=== PATIENT | male | born 1985 | race Caucasian/White ===

== ENCOUNTER 2021-07-01 23:00 | Emergency (ER) | payer MEDICAID, SELFPAY ==
--- NOTE | ~2021-07-01 | CT_ITS ---
EXAMINATION: CT brain wo con INDICATION: Transient alteration of awareness COMPARISON: 03/31/2012 TECHNIQUE: Standard unenhanced head CT. The dose-length product (DLP) was 681.00 mGy-cm. The mA was a djusted according to patient size. Iterative reconstruction technique was employed. FINDINGS: There is no intracranial hemorrhage, acute infarction, or abnormal mass lesion. The ventric les are normal. There is no abnormal mass effect or midline shift. The howe-white matter differentiat ion is normal. The basal cisterns are patent. The orbits are normal. There is mild mucosal thickening of the paranasal sinuses. Surgical changes are noted in the inferior right orbit. IMPRESSION: 1. No acute intracranial abnormality. Reviewed, dictated and finalized at location A.
[2021-07-01 23:16] VITALS: BP 138/100; PULSE 100; RESP 20; TEMP 37; O2SAT 100
--- NOTE | 2021-07-01 23:26 | ED.GENADULT ---
HPI - General Adult General Chief complaint: Psychiatric Symptoms Stated complaint: PSYCH Time Seen by Provider: 07/01/21 23:02 Source: EMS Mode of arrival: EMS Limitations: altered mental status History of Present Illness HPI narrative: 35-year-old male presenting to the emergency department for a psych evaluation. Patient arrives to the emergency department by EMS. Patient was picked up by the police and has been nonverbal and not responding. Patient does make some acknowledgments. I did tell the patient that I could tell he was trying not to make eye contact with me and the patient showed me the middle finger. Patient reportedly has a past history of PTSD and alcohol abuse. After the patient's father arrived the patient did become verbal. Patient is alert and appropriate at this time. Father states that the patient has had altered mental status over the last few days. Patient states he now feels improved. Patient denies any suicidal or homicidal ideation. Patient states he has had previous psychiatric visits but denies any psychiatric hospitalization. Patient states he does have a counselor but the counselor is unable to get him in until Wednesday. Related Data Home Medications Medication Instructions Recorded Confirmed No Home Medications 03/11/20 03/11/20 Allergies Allergy/AdvReac Type Severity Reaction Status Date / Time pantoprazole Allergy Intermediate Itching Verified 03/11/20 11:07 lorazepam AdvReac Severe AMNESIA, Verified 03/11/20 11:07 DECREASED LOC FOR DAYS Review of Systems Review of Systems: ROS unobtainable: Yes unobtainable due to mental status PMFSH Social History Social History (Reviewed 03/11/20 @ 11:07 by Josefina Epps, [facility]) Smoking status: Former smoker Alcohol intake: current Substance use type: does not use Exam Narrative: APPEARANCE: Well appearing, no pain, no distress, well-nourished. HEAD: normocephalic, atraumatic. EYES: PERRLA/EOMI, conjunctivae clear. THROAT: Pharynx clear, no exudate. NECK: Supple. No adenopathy, no masses. RESPIRATORY: Airway patent, respirations nonlabored. Clear to auscultation bilaterally, no rales, rhonchi, wheezing. CARDIOVASCULAR: Regular rate and rhythm without murmurs rubs or gallops. ABDOMINAL: Soft, nontender, nondistended, normal bowel sounds MUSCULOSKELETAL: Moves all extremities. Strength/ROM intact, No edema, No calf tenderness. NEURO: Alert. Cranial nerves II through XII intact. Good gait. Good coordination SKIN: Warm, dry. Normal Color PSYCHIATRIC: Patient was initially altered and displaying unusual behavior where he was praying and nonverbal. After Haldol and the patient's father's arrival to the ED patient was alert oriented and appropriate. Course Course Emergency Course: After treatment with Haldol patient became alert and oriented and more appropriate. Father states that the patient does have a significant history of PTSD. Patient does have a counselor that he follows up with and is scheduled to see them on Wednesday. Patient was evaluated by the crisis counselor and was deemed safe for discharge to home. Patient denies any homicidal or suicidal ideation. Patient and father were comfortable to plan for discharge and close follow-up. Reevaluation(s) Reevaluation #1: Patient is medically cleared to be evaluated by the crisis counselor. Patient is also medically cleared for inpatient psychiatric placement as needed. Vital Signs Vital signs: Vital Signs Temperature 98.6 F 07/01/21 23:16 Pulse Rate 100 07/01/21 23:16 Respiratory Rate 20 07/01/21 23:16 Blood Pressure 138/100 H 07/01/21 23:16 Pulse Oximetry 100 07/01/21 23:16 Temperature 98.6 F 07/01/21 23:16 Pulse Rate 72 07/02/21 07:06 Respiratory Rate 16 07/02/21 07:06 Blood Pressure 120/72 07/02/21 07:06 Pulse Oximetry 100 07/02/21 07:06 Medical Decision Making Vital Signs Vital Signs: Vital Signs Temperature 98.6
[2021-07-01] MEDS: HALOPERIDOL LACTATE 5 MG/ML VIAL IM (23:32)
[2021-07-01] MEDS: SODIUM CHLORIDE 0.9% IV 1,000 ML 999 ML IV CONT (23:35)
[2021-07-01 23:50] LABS: Basophils Absolute Auto 0.1 K/mm3 (0.0-0.1); Basophils Percent Auto 0.7 % (0.2-1.2); Eosinophils Absolute Auto 0.1 K/mm3 (0-0.3); Eosinophils Percent Auto 0.9 % (0-4.4); Hematocrit 46.8 % (42.0-52.0); Hemoglobin 15.9 g/dL (14.0-18.0); Immature Granulocyte Absolute 0.01 K/mm3 (0.00-0.031); Immature Granulocyte Percent A 0.1 % (0-0.5); Lymphocytes Absolute Auto 2.97 K/mm3 (0.9-3.2); Lymphocytes Percent Auto 33.3 % (18.3-44.2); Mean Corpuscular Hemoglobin 32.9 pg (26-34); Mean Corpuscular Volume 96.9 fl (80-100); Mean Platelet Volume 10.1 fl (7.4-10.4); Monocytes Percent Auto 11.2 % (2.6-8.5); Neutrophils Absolute Auto 4.8 K/mm3 (1.3-6.7); Neutrophils Percent Auto 53.8 % (45.5-73.1); Platelet Count Result 322 k/mm3 (150-375); Red Blood Count 4.83 M/mm3 (4.6-6.20); Red Cell Distribution Width 11.6 % (11.5-14.5); White Blood Count 8.9 K/mm3 (4.5-10.0)
--- NOTE | 2021-07-02 | ECG_ITS ---
Measurements Intervals [place] Rate: 83 P: 69 GA: 155 QRS: 83 QRSD: 88 T: 52 QT: 385 QTc: 453 Interpretive Statements SINUS RHYTHM DELAYED PRECORDIAL R/S TRANSITION BORDERLINE T WAVE ABNORMALITY- ANTERIOR LEADS BORDERLINE ECG Electronically Signed On 07-02-2021 6:47:11 CDT by Shekhar Stout D.O.
[2021-07-02 00:03] LABS: Alanine Aminotransferase 49 U/L (6-50); Albumin Level 4.9 g/dL (3.5-5.1); Alkaline Phosphatase 62 U/L (38-126); Anion Gap 9 mmol/L (8-16); Aspartate Amino Transferase 70 U/L (17-59); Blood Urea Nitrogen 22 mg/dL (9-20); Calcium 9.6 mg/dL (8.4-10.2); Carbon Dioxide 27 mmol/L (22-30); Chloride 106 mmol/L (98-107); Estimated Glomerular Filt Rate > 60; Glucose 131 mg/dL (65-110); Potassium 3.7 mmol/L (3.4-5.0); Sodium 142 mmol/L (137-145)
[2021-07-02 00:04] LABS: Acetaminophen < 10 ug/mL (10-30); Ethanol < 10 mg/dL (<10); Salicylate < 1.0 mg/dL (2-20)
[2021-07-02 00:13] LABS: Magnesium 2.3 mg/dL (1.6-2.3)
--- NOTE | 2021-07-02 00:17 | PC.NURSE ---
Patient sitting up and talking only when Dad and EDP Wu in room.
--- NOTE | 2021-07-02 00:22 | PC.NURSE ---
Patient in bed eating a and talking to DAD.
--- NOTE | 2021-07-02 00:44 | PC.NURSE ---
Patient in room talking to father. Patient refused to void and asked for more water. Patient given more water and stated he will try in a few min. EKG done at this time.
[2021-07-02 01:34] LABS: Appearance Urine Clear (Clear); Bilirubin Urine Negative (Negative); Color Urine Yellow (Yellow); Glucose Urine UA Negative (Negative); Ketones Urine Negative (Negative); Leukocyte Esterase Ur Negative LEU/UL (Negative); Nitrate Urine Negative (Negative); Protein Urine Negative (Negative); Specific Grav Ur 1.025 (1.001-1.035); Urobilinogen Urine 0.2 mg/dL (<2.0); pH Urine 5.5 (5.0-9.0)
[2021-07-02 01:35] LABS: Add Urine Microscopic? YES; Blood Urine Trace (Negative)
[2021-07-02 01:38] LABS: Mucus Urine Rare /lpf; RBC Urine 0-2 /hpf (0-2); WBC Urine 0-3 /hpf
[2021-07-02 01:48] LABS: Amphetamine Screen Urine Negative (Negative); Barbiturate Screen Urine Negative (Negative); Benzodiazepines Screen Urine Negative (Negative); Cannabinoid Screen Urine Negative (Negative); Cocaine Screen Urine Negative (Negative); Methadone Screen Urine Negative (Negative); Opiate Screen Urine Negative (Negative); Phencyclidine Screen Urine Negative (Negative)
[2021-07-02] MEDS: SODIUM CHLORIDE 0.9% IV 1,000 ML 999 ML IV CONT (02:01)
--- NOTE | 2021-07-02 04:18 | PC.NURSE ---
Crisis just left patient room after talk with him. Patient is sitting on the side of the bed.
[2021-07-02 07:06] VITALS: BP 120/72; PULSE 72; RESP 16; O2SAT 100
== END 2021-07-02 07:08 | disposition home or self-care (01) ==
PROVIDERS: Emergency Provider Emergency Medicine; PCP Family Medicine
DX: R46.89 Other symptoms and signs involving appearance and behavior (principal); Z87.891 Personal history of nicotine dependence; F43.10 Post-traumatic stress disorder, unspecified
CPT/HCPCS: 36415; 70450; 80053; 80307; 81001; 83735; 84443; 85025; 93005; 96360; 96361; 96372; 99284; J1630; J7030

== ENCOUNTER 2021-10-07 16:06 | Emergency (ER) | payer MEDICAID, SELFPAY ==
--- NOTE | ~2021-10-07 | CT_ITS ---
EXAMINATION: CT brain wo con DATE: 10/07/2021 18:43 INDICATION: Headache. TECHNIQUE: Computed tomography (CT) of the head was performed without intravenous contrast. The mA wa s adjusted according to patient size. Iterative reconstruction technique was employed. The dose-lengt h product was 605.33 mGy-cm. COMPARISON: Head CT 07/01/2021 FINDINGS: There is no intracranial hemorrhage, acute infarction, or abnormal intracranial mass lesion . The ventricles are normal in size. There is mild mucosal thickening in the ethmoid sinuses. The mas toid air cells are normal. The orbits are normal. IMPRESSION: 1. Normal brain. Reviewed, dictated and finalized at location A. IMPRESSION: 1. Normal brain.
--- NOTE | ~2021-10-07 | CT_ITS ---
EXAMINATION: CT cervical spine wo con DATE: 10/07/2021 18:44 INDICATION: Head injury. TECHNIQUE: Computed tomography (CT) of the cervical spine was performed without intravenous contrast. Automated exposure control and iterative reconstruction technique were employed. The dose-length pro duct was 385.59 mGy-cm. COMPARISON: CT cervical spine 01/26/2010 FINDINGS: There is 12 degrees levoscoliosis of cervical spine. Vertebral body heights and interverteb ral disc heights are normal. At C7-T1, there is mild bilateral facet joint osteoarthritis. No neural foraminal stenosis. At C3-C4, there is mild central canal stenosis. IMPRESSION: 1. No fracture. 2. Mild cervical spondylosis. 3. Cervical levoscoliosis. Reviewed, dictated and finalized at location A.
--- NOTE | ~2021-10-07 | XR_ITS ---
EXAMINATION: XR shoulder RT min 2V DATE: 10/07/2021 18:40 INDICATION: Right shoulder pain. TECHNIQUE: 5 views of right shoulder were obtained. COMPARISON: None. FINDINGS: Bone alignment is normal. No fracture. Joint spaces are well maintained. IMPRESSION: 1. Normal right shoulder. Reviewed, dictated and finalized at location A. IMPRESSION: 1. Normal right shoulder.
[2021-10-07 16:29] VITALS: BP 119/77; PULSE 115; RESP 20; TEMP 37.3; O2SAT 98
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
[2021-10-07] MEDS: KETOROLAC (*BKC) 60 MG/2 ML VIAL IM (19:11)
[2021-10-07 19:52] VITALS: BP 124/86; PULSE 100; RESP 16; TEMP 37.5; O2SAT 97
== END 2021-10-07 19:52 | disposition home or self-care (01) ==
PROVIDERS: Emergency Provider General Practice; PCP Family Medicine
DX: S16.1XXA Strain of muscle, fascia and tendon at neck level, initial encounter (principal); R51.9 Headache, unspecified; F17.200 Nicotine dependence, unspecified, uncomplicated; M47.812 Spondylosis without myelopathy or radiculopathy, cervical region; Y04.0XXA Assault by unarmed brawl or fight, initial encounter
CPT/HCPCS: 70450; 72125; 73030; 96372; 99284; J1885

== ENCOUNTER 2023-06-12 07:21 | Emergency (ER) | payer OTHER, SELFPAY ==
--- NOTE | ~2023-06-12 | CT_ITS ---
EXAMINATION: CT abdomen pelvis w con DATE: 06/12/2023 08:35 INDICATION: Abdominal cramping. Lower GI bleed. TECHNIQUE: Computed tomography (CT) of the abdomen and pelvis was performed with 100 cc Omnipaque 350 intravenous contrast. The dose-length product was 219.68 mGy-cm. Automated exposure control and iter ative reconstruction technique were employed. COMPARISON: CT abdomen dated 01/14/2016 FINDINGS: Lung bases are unremarkable. Heart size normal. No significant pleural or pericardial effus ion. No significant vascular abnormality. No lymphadenopathy. Nonobstructive bowel gas pattern. No fr ee air or free fluid. The liver, spleen, pancreas, adrenal glands and kidneys are unremarkable. Gallb ladder is present. No acute osseous abnormality. IMPRESSION: 1. No acute abdominal abnormality. Reviewed, dictated and finalized at location A.
[2023-06-12 07:27] VITALS: BP 130/91; PULSE 78; RESP 18; TEMP 36.1; O2SAT 100
[2023-06-12 07:53] LABS: Basophils Absolute Auto 0.1 K/mm3 (0.0-0.1); Eosinophils Absolute Auto 0.1 K/mm3 (0-0.3); Eosinophils Percent Auto 1.5 % (0-4.4); Hematocrit 49.1 % (42.0-52.0); Hemoglobin 16.4 g/dL (14.0-18.0); Immature Granulocyte Absolute 0.02 K/mm3 (0.00-0.031); Immature Granulocyte Percent A 0.3 % (0-0.5); Lymphocytes Absolute Auto 2.48 K/mm3 (0.9-3.2); Mean Corpuscular HGB Conc 33.4 g/dl (32-36); Mean Corpuscular Hemoglobin 32.2 pg (26-34); Mean Corpuscular Volume 96.3 fl (80-100); Mean Platelet Volume 10.5 fl (7.4-10.4); Monocytes Percent Auto 13.7 % (2.6-8.5); Neutrophils Absolute Auto 3.6 K/mm3 (1.3-6.7); Neutrophils Percent Auto 49.5 % (45.5-73.1); Platelet Count Result 283 k/mm3 (150-375); Red Cell Distribution Width 11.7 % (11.5-14.5); White Blood Count 7.3 K/mm3 (4.5-10.0)
[2023-06-12 08:06] LABS: Lactic Acid Reflex 1.4 mmol/L (0.7-2.0); Prothrombin Time 13.2 Seconds (11.1-14.7)
[2023-06-12 08:07] LABS: Alanine Aminotransferase 40 U/L (6-50); Albumin Level 5.1 g/dL (3.5-5.1); Alkaline Phosphatase 62 U/L (38-126); Anion Gap 7 mmol/L (4-12); Aspartate Amino Transferase 33 U/L (17-59); Bilirubin,Total 0.6 mg/dL (0.2-1.3); Blood Urea Nitrogen 22 mg/dL (9-20); Calcium 10.5 mg/dL (8.4-10.2); Carbon Dioxide 29 mmol/L (22-30); Chloride 106 mmol/L (98-107); Estimated CRCL calculation 75 ml/min; Estimated Glomerular Filt Rate > 60; Glucose 119 mg/dL (65-110); Lipase 161 U/L (23-300); Magnesium 2.2 mg/dL (1.6-2.3); Partial Thromboplastin Time 30.3 Seconds (22.3-36.8); Sodium 142 mmol/L (137-145)
--- NOTE | 2023-06-12 08:24 | ED_ITS ---
HPI - GI Bleed General Chief complaint: GI Bleed Stated complaint: abdominal pain, rectal bleeding Time Seen by Provider: 06/12/23 07:25 History of Present Illness HPI Narrative: Patient with history of hemorrhoids, prior alcohol use disorder no remission for multiple years, presents after noticing bright red blood when he was having a bowel movement, he states that there was blood in the toilet. Have 1 episode last night and then again today so came into the hospital. Also reporting some abdominal cramping. No nausea or vomiting. Related Data Allergies Allergy/AdvReac Type Severity Reaction Status Date / Time No Known Allergies Allergy Verified 06/12/23 07:34 Review of Systems Review of Systems: CONST: No fever. HEENT: No sore throat C/V: No chest pain RESP: No cough GI: Reports abdominal pain, bright red blood per rectum : No dysuria. M/S: No joint pain. SKIN: No rash. NEURO: [No headache or focal numbness or weakness] PSYCH: [No depression] [facility] Past Medical History Medical History Alcohol abuse Bipolar affective disorder, current episode hypomanic Generalized anxiety disorder Surgical History Surgical History (Updated 10/07/21 @ 18:03 by Michelle Meléndez PA-C) History of facial surgery Social History Social History (Updated 10/07/21 @ 18:03 by Michelle Meléndez PA-C) Smoking status: Current every day smoker Alcohol intake: current Substance use type: does not use Exam Narrative: EXAMINATION OF ORGAN SYSTEMS/BODY AREAS: Constitutional: Vital signs per nursing GENERAL:[No acute distress, non-toxic appearing.] HEAD: Normal with no signs of head trauma. EYES: EOMI, conjunctiva normal ENT: Hearing grossly intact LUNGS: Nonlabored breathing. HEART: [Regular rate and rhythm] ABD: [Soft], no tenderness to palpation RECTAL: with nurse fish cutting machine operator at bedside. Multiple external hemorrhoids, mild tenderness on rectal exam, with grossly brown stool that is hemoccult + EXT: Normal range of motion SKIN: [No rashes or lesions.] NEURO: [Alert and oriented x 3. No gross focal sensory or strength deficits.] PSYCH: Normal affect Course Vital Signs Vital signs: Vital Signs Temperature 97.0 F L 06/12/23 07:27 Pulse Rate 78 06/12/23 07:27 Respiratory Rate 18 06/12/23 07:27 Blood Pressure 130/91 H 06/12/23 07:27 Pulse Oximetry 100 06/12/23 07:27 Temperature 97.0 F L 06/12/23 07:27 Pulse Rate 84 06/12/23 08:49 Respiratory Rate 16 06/12/23 08:49 Blood Pressure 132/88 06/12/23 08:49 Pulse Oximetry 98 06/12/23 08:49 MDM - GI Bleed MDM Narrative Medical decision making narrative: Patient presents here with bright red blood per rectum, has had 2 episodes since last night, with some mild abdominal cramping, he was very worried seeing the blood in the toilet, he is well-appearing here, abdomen soft nontender, on rectal exam with nurse fish cutting machine operator, there are multiple hemorrhoids, grossly brown stool, Hemoccult positive. Differential includes hemorrhoids, also considered possible upper GI bleed however patient reporting bright red blood and he has not had any nausea vomiting and has been years since he last drank alcohol a, also consider diverticular disease. Labs within acceptable limits including hemoglobin of 16, CT abdomen/pelvis obtained is unremarkable. I did update the patient and his mom in the room regarding and the need to follow-up with general surgeon for his hemorrhoids, possibly GI if not improved, for colonoscopy. Return precautions discussed he is stable for discharge and they are agreeable to this plan. Lab Data 06/12/23 07:37 06/12/23 07:37 Labs: Lab Results 06/12/23 Range/Units 07:37 WBC 7.3 (4.5-10.0) K/mm3 RBC 5.10 (4.6-6.20) M/mm3 Hgb 16.4 (14.0-18.0) g/dL Hct 49.1 (42.0-52.0) % MCV 96.3 (80-100) fl MCH 32.2 (26-34) pg MCHC 33.4 (32-36) g/dl RDW 11.7 (11.5-14.5) % Plt Count 283 (150-375) k/mm3 MPV 10.5 H (7.4-10.4) fl Immature Gran % (Auto) 0.3 (0-0.5) % Neut % (Auto) 49.5 (45.5-73.1) % Lymph % (Auto) 34.0 (18.3-44.2) % Leslie % (Auto) 13.7 H (2.6-8.5) % Eos % (Auto) 1.5 (0-4.4) % Baso % (Auto) 1.0 (0.2-1.2) % Lymph # (Auto) 2.48 (0.9-3.2) K/mm3 Leslie # (Auto) 1.0 H (0.1-0.6) K/mm3 Eos # (Auto) 0.1 (0-0.3) K/mm3 Baso # (Auto) 0.1 (0.0-0.1) K/mm3 Abs Immat Gran (auto) 0.02 (0.00-0.031) K/mm3 Absolute Neuts (auto) 3.6 (1.3-6.7) K/mm3 Absolute Nucleated RBC 0.000 (0.0-0.012) K/mm3 Nucleated RBC % 0.0 (0.0-0.2) % PT 13.2 (11.1-14.7) Seconds INR 1.0 APTT 30.3 (22.3-36.8) Seconds Sodium 142 (137-145) mmol/L Potassium 4.0 (3.4-5.0) mmol/L Chloride 106 (98-107) mmol/L Carbon Dioxide 29 (22-30) mmol/L Anion Gap 7 (4-12) mmol/L BUN 22 H (9-20) mg/dL Creatinine 1.10 (0.7-1.3) mg/dL Estim Creat Clear Calc 75 ml/min Estimated GFR > 60 (59 - ) Glucose 119 H (65-110) mg/dL Lactic Acid 1.4 (0.7-2.0) mmol/L Calcium 10.5 H (8.4-10.2) mg/dL Magnesium 2.2 (1.6-2.3) mg/dL Total Bilirubin 0.6 (0.2-1.3) mg/dL AST 33 (17-59) U/L ALT 40 (6-50) U/L Alkaline Phosphatase 62 (38-126) U/L Total Protein 8.0 (6.3-8.2) g/dL Albumin 5.1 (3.5-5.1) g/dL Lipase 161 (23-300) U/L Blood Type AB Positive Antibody Screen Negative Discharge Plan Discharge Clinical Impression: Bright red rectal bleeding, Hemorrhoids Patient Disposition: Home, Self-Care Condition: Stable Instructions: Antibiotic Form, Hemorrhoids (ED), Rectal Bleeding (ED) Prescriptions: New Preparation H 0.25-14-74.9 % ointment 1 applic RECTAL DAILY PRN (Reason: hemorrhoids) Qty: 28 0RF dicyclomine 20 mg tablet 20 mg PO TID Qty: 30 0RF Follow-up/Referrals: Jg Mcgee MD [Primary Care Provider] - Ricardo Clifton MD [Physician] - 2 Days Mehran Gleason DO [Physician] - 2 Days
[2023-06-12 08:49] VITALS: BP 132/88; PULSE 84; RESP 16; O2SAT 98
== END 2023-06-12 08:50 | disposition home or self-care (01) ==
PROVIDERS: Emergency Provider Emergency Medicine; PCP Family Medicine
DX: K64.9 Unspecified hemorrhoids (principal); K62.5 Hemorrhage of anus and rectum; F17.200 Nicotine dependence, unspecified, uncomplicated
CPT/HCPCS: 36415; 74177; 80053; 83605; 83690; 83735; 85025; 85610; 85730; 86850; 86900; 86901; 99284; Q9967

== ENCOUNTER 2023-11-10 15:00 | Emergency (ER) | payer OTHER, SELFPAY ==
[2023-11-10 15:02] VITALS: BP 106/79; PULSE 83; RESP 16; TEMP 36.6; O2SAT 100
--- NOTE | 2023-11-10 15:58 | ED.GENADULT ---
HPI - General Adult General Chief complaint: Head Injury Stated complaint: FALL, [place] Time Seen by Provider: 11/10/23 15:22 Source: patient and family Mode of arrival: ambulatory Limitations: no limitations History of Present Illness HPI narrative: Patient accidentally is stable right hand prior to arrival to the emergency room, in the process of removing the stable got lightheadedness and lost balance and hit right side of the forehead at a table corner, with possible loss of consciousness for 1-2 second. Patient complaining of laceration right eyebrow otherwise denies any headache, neck pain or any other injuries. Unknown last tetanus shot Related Data Allergies Allergy/AdvReac Type Severity Reaction Status Date / Time No Known Allergies Allergy Verified 06/12/23 07:34 Review of Systems Review of Systems: All systems reviewed & are unremarkable except as noted in HPI and below PMFSH Past Medical History Medical History Alcohol abuse Bipolar affective disorder, current episode hypomanic Generalized anxiety disorder Surgical History Surgical History History of facial surgery Social History Social History Smoking status: Current every day smoker Alcohol intake: current Substance use type: does not use Exam Narrative: General appearance: Well-developed, well-nourished Skin: Right eyebrow laceration 1 cm, subcutaneous, satellite Head: Normocephalic, nontraumatic Eyes: Clear conjunctiva ENT: Oropharynx normal, ears normal, nose normal Neck: Supple, nontender Chest and respiratory: Airway patent, no respiratory distress, no accessory muscle use Heart: Regular rate/rhythm Abdomen: Soft, nontender, no organomegaly, quiet bowel sounds Vascular: Normal peripheral pulses, normal capillary refill. 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, no gross motor deficit Course Vital Signs Vital signs: Vital Signs Temperature 36.6 C 11/10/23 15:02 Pulse Rate 83 11/10/23 15:02 Respiratory Rate 16 11/10/23 15:02 Blood Pressure 106/79 11/10/23 15:02 Pulse Oximetry 100 11/10/23 15:02 Oxygen Delivery Room Air 11/10/23 15:02 Temperature 36.6 C 11/10/23 15:02 Pulse Rate 83 11/10/23 15:02 Respiratory Rate 16 11/10/23 15:02 Blood Pressure 106/79 11/10/23 15:02 Pulse Oximetry 100 11/10/23 15:02 Oxygen Delivery Room Air 11/10/23 15:02 Procedures Laceration Laceration 1: Date: 11/10/23 Time: 17:09 Site: face Side (If applicable): right Size (cm): 1 Description: stellate Depth: simple, single layer Local Anesthetic: lidocaine 1% and with epi Amount of anesthesia used (mL): 3 Pre-repair: wound explored ====== Skin Level ====== Skin layer closed with: nylon Size (cm): 6-0 Number of sutures: 4 ====== Subcutaneous Layer ====== ====== Muscle Layer ====== ====== Tendon Layer ====== Medical Decision Making MDM Narrative Medical decision making narrative: Patient almost blacked out while trying to move stable from the right hand, vasovagal is my concern. Physical examination showed 1 cm laceration right eyebrow No labs or imaging are required at this time Currently patient is asymptomatic Four sutures of the right eyebrow laceration was done under sterile condition, patient received a tetanus shot and discharged on Kefl
[2023-11-10] MEDS: TETANUS,DIPHTHERIA,AC PERTUSSIS ADULT (0.5 ML) BOOSTRIX IM (16:12)
== END 2023-11-10 17:21 | disposition home or self-care (01) ==
PROVIDERS: Emergency Provider Emergency Medicine; PCP Family Medicine
DX: S01.111A Laceration without foreign body of right eyelid and periocular area, initial encounter (principal); W18.30XA Fall on same level, unspecified, initial encounter; R55 Syncope and collapse; F17.210 Nicotine dependence, cigarettes, uncomplicated; F41.1 Generalized anxiety disorder; F10.10 Alcohol abuse, uncomplicated; Z23 Encounter for immunization
CPT/HCPCS: 12011; 90471; 90715; 99283